=== PATIENT | male | born 1990 | race African-American/Black ===

== ENCOUNTER 2017-01-28 13:27 | Emergency (ER) | payer SELFPAY ==
[~2017-01-28] VITALS: Ht 180.3 cm; Wt 65.8 kg
[2017-01-28 13:27] VITALS: BP_SYST 114
[2017-01-28 13:48] VITALS: BP_SYST 116
== END 2017-01-28 13:48 ==
LOC: SED 13:27
DX: Z04.1 Encounter for examination and observation following transport accident (principal)
CPT/HCPCS: 99283